=== PATIENT | male | born 1990 | race Caucasian/White ===

== ENCOUNTER 2020-12-06 17:10 | Emergency (ER) | payer MEDICAID, OTHER ==
[~2020-12-06] VITALS: Ht 175.3 cm; Wt 90.9 kg
[2020-12-06] MEDS ORDERED: DULO20CA27 PO (17:15)
[2020-12-06 18:26] VITALS: BP 144/107
== END 2020-12-06 18:37 | disposition home or self-care (01) ==
LOC: EMS 17:10
DX: K12.0 Recurrent oral aphthae (principal)
CPT/HCPCS: 99283; Z7502